=== PATIENT | male | born 1985 | race African-American/Black ===

== ENCOUNTER 2017-08-24 17:44 | Emergency (ER) | payer BC ==
[2017-08-24] MEDS ORDERED: NEOMY SULF/POLYMYX B SULF/HC OTIC SUSP 10 ML AS ONE (19:13)
--- NOTE | 2017-08-24 19:21 | ER Document Report ---
ED General - General Chief Complaint: Ear Pain Stated Complaint: EAR PAIN Time Seen by Provider: 08/24/17 19:06 Mode of Arrival: Ambulatory Information source: Patient TRAVEL OUTSIDE OF THE [place] IN LAST 30 DAYS: No - HPI Patient complains to provider of: left ear pain Onset: Yesterday Onset/Duration: Sudden Quality of pain: Throbbing Severity: Moderate Associated symptoms: None Exacerbated by: Denies Relieved by: Denies Similar symptoms previously: No Recently seen / treated by doctor: No - Related Data Allergies/Adverse Reactions: No Known Allergies Allergy (Verified 08/24/17 17:45) Past Medical History - General Information source: Patient - Social History Smoking Status: Current Every Day Smoker Frequency of alcohol use: None Drug Abuse: None Lives with: Family Family History: DM, Malignancy Patient has suicidal ideation: No Patient has homicidal ideation: No - Medical History Medical History: Negative Renal/ Medical History: Denies: Hx Peritoneal Dialysis Musculoskeltal Medical History: Reports Hx Musculoskeletal Deformity, Reports Hx Musculoskeletal Trauma Past Surgical History: Reports: None - Immunizations Immunizations up to date: Yes Hx Diphtheria, Pertussis, Tetanus Vaccination: Yes Review of Systems - Review of Systems Constitutional: No symptoms reported EENT: See HPI Cardiovascular: No symptoms reported Respiratory: No symptoms reported Gastrointestinal: No symptoms reported Genitourinary: No symptoms reported Male Genitourinary: No symptoms reported Musculoskeletal: No symptoms reported Skin: No symptoms reported Hematologic/Lymphatic: No symptoms reported Neurological/Psychological: No symptoms reported Physical Exam - Vital signs Vitals: Temp Pulse Resp BP Pulse Ox 98.3 F 68 18 107/82 98 08/24/17 18:07 08/24/17 18:07 08/24/17 18:07 08/24/17 18:07 08/24/17 18:07 - Notes Notes: PHYSICAL EXAMINATION: GENERAL: Well-appearing, well-nourished and in no acute distress. HEAD: Atraumatic, normocephalic. EYES: Pupils equal round and reactive to light, extraocular movements intact, sclera anicteric, conjunctiva are normal. ENT: Nares patent, oropharynx clear without exudates. Moist mucous membranes. Pinna painful with active motion. External canal erythematous. TM within normal limits. NECK: Normal range of motion, supple without lymphadenopathy LUNGS: Breath sounds clear to auscultation bilaterally and equal. No wheezes rales or rhonchi. HEART: Regular rate and rhythm without murmurs ABDOMEN: Soft, nontender, nondistended abdomen. No guarding, no rebound. No masses appreciated. Musculoskeletal: Normal range of motion, no pitting or edema. No cyanosis. NEUROLOGICAL: Cranial nerves grossly intact. Normal speech, normal gait. Normal sensory, motor exams PSYCH: Normal mood, normal affect. SKIN: Warm, Dry, normal turgor, no rashes or lesions noted. Course - Vital Signs Vital signs: Temp Pulse Resp BP Pulse Ox 98.3 F 68 18 107/82 98 08/24/17 18:07 08/24/17 18:07 08/24/17 18:07 08/24/17 18:07 08/24/17 18:07 Discharge - Discharge Clinical Impression: Left otitis externa Condition: Stable Disposition: HOME, SELF-CARE Instructions: Otitis Externa ([facility]), Use of Ear Drops ([facility]) Additional Instructions: corticosporin otic drops: 4 drops left ear three times daily for 5 days Follow up with your physician tomorrow for further care or return to the ED IMMEDIATELY if symptoms worsen or new concerns occur. If you cannot afford to follow up with your primary care physician a list of low cost clinics have been provided at the end of your discharge papers as well. Referrals: DEZ MILLIGAN, [ASSOCIATE] - Follow up as needed
[2017-08-24 19:28] VITALS: BP 124/82
== END 2017-08-24 19:28 | disposition home or self-care (01) ==
LOC: ER 17:44
DX: H60.92 Unspecified otitis externa, left ear (principal); H92.02 Otalgia, left ear; F17.200 Nicotine dependence, unspecified, uncomplicated
CPT/HCPCS: 99282; J3490

== ENCOUNTER 2018-04-09 13:42 | Emergency (ER) | payer BC ==
[2018-04-09 14:32] VITALS: BP 135/73
[2018-04-09] MEDS ORDERED: NORMAL SALINE 1000 ML 1,000 ML IV ONE (14:44)
[2018-04-09] MEDS ORDERED: ONDANSETRON HCL INJ/PF 4 MG/2 ML SDV IV ONE (14:44)
--- NOTE | 2018-04-09 14:46 | ER Document Report ---
ED Medical Screen (RME) - General Chief Complaint: Nausea/Vomiting Stated Complaint: VOMITING/FEVER Time Seen by Provider: 04/09/18 14:43 Mode of Arrival: Ambulatory Information source: Patient Notes: Patient is an otherwise healthy 33-year-old male who presents with chief complaint of body aches, chills, nausea, vomiting and diarrhea that started at 2 AM. Patient does report he was out drinking last night, reports he has never had anything like this happen before. Patient does report some abdominal pain that is intermittent sharp stabbing and cramping pain. Denies any blood in his vomit or stool. Exam: Abdomen soft, nontender I have greeted and performed a rapid initial assessment of this patient. A comprehensive ED assessment and evaluation of the patient, analysis of test results and completion of the medical decision making process will be conducted by additional ED providers. Dictation of this chart was performed using voice recognition software; therefore, there may be some unintended grammatical errors. TRAVEL OUTSIDE OF THE [place] IN LAST 30 DAYS: No - Related Data Allergies/Adverse Reactions: No Known Allergies Allergy (Verified 04/09/18 13:44) Past Medical History - Social History Chew tobacco use (# tins/day): No Frequency of alcohol use: None Drug Abuse: None Renal/ Medical History: Denies: Hx Peritoneal Dialysis Musculoskeltal Medical History: Reports Hx Musculoskeletal Deformity, Reports Hx Musculoskeletal Trauma - Immunizations Immunizations up to date: Yes Hx Diphtheria, Pertussis, Tetanus Vaccination: Yes Physical Exam - Vital signs Vitals: Temp Pulse Resp BP Pulse Ox 98.0 F 59 L 16 135/73 H 100 04/09/18 14:04/09/18 14:04/09/18 14:04/09/18 14:29 04/09/18 14:29 Course - Vital Signs Vital signs: Temp Pulse Resp BP Pulse Ox 98.0 F 59 L 16 135/73 H 100 04/09/18 14:29 04/09/18 14:29 04/09/18 14:29 04/09/18 14:29 04/09/18 14:29
[2018-04-09 15:20] LABS: APPEARANCE,URINE CLEAR; BILIRUBIN,URINE NEGATIVE (NEGATIVE); COLOR,URINE YELLOW; GLUCOSE, URINE NEGATIVE (NEGATIVE); KETONES,URINE NEGATIVE (NEGATIVE); LEUKOCYTE ESTERASE,URINE NEGATIVE (NEGATIVE); NITRITE,URINE NEGATIVE (NEGATIVE); PROTEIN,URINE NEGATIVE (NEGATIVE); URINE SPECIFIC GRAVITY 1.018; UROBILINOGEN,URINE NEGATIVE mg/dL (<2.0)
[2018-04-09 15:54] LABS: ABSOLUTE EOSINOPHILS # (AUTO) 0.2 10^3/uL (0.0-0.6); ABSOLUTE LYMPHOCYTES (AUTO) 2.5 10^3/uL (0.5-4.7); ABSOLUTE MONOCYTES (AUTO) 0.6 10^3/uL (0.1-1.4); ABSOLUTE NEUT (AUTO) 1.9 10^3/uL (1.7-8.2); BASOPHILS % (AUTO) 0.8 % (0-2); EOSINOPHILS % (AUTO) 4.6 % (0-6); HEMATOCRIT 49.7 % (37.9-51.0); HEMOGLOBIN 17.2 g/dL (13.5-17.0); LYMPHOCYTES % (AUTO) 47.7 % (13-45); MEAN CORPUSCULAR HGB CONC 34.5 g/dL (32.0-36.0); MEAN CORPUSCULAR VOLUME 90 fl (80-97); MONOCYTES % (AUTO) 11.3 % (3-13); PLATELET COUNT 205 10^3/uL (150-450); RED BLOOD COUNT 5.54 10^6/uL (4.35-5.55); RED CELL DISTRIBUTION WIDTH 12.4 % (11.5-14.0); SEGMENTED NEUTROPHILS % (AUTO) 35.6 % (42-78); TOTAL CELLS COUNTED % (AUTO) 100 %; WHITE BLOOD COUNT 5.3 10^3/uL (4.0-10.5)
[2018-04-09 17:27] LABS: ALANINE AMINOTRANSFERASE 30 U/L (21-72); ALBUMIN 4.2 g/dL (3.5-5.0); ALKALINE PHOSPHATASE 75 U/L (38-126); ANION GAP 9 (5-19); ASPARTATE AMINO TRANSFERASE 33 U/L (17-59); BILIRUBIN,DIRECT 0.4 mg/dL (0.0-0.4); BILIRUBIN,TOTAL 0.7 mg/dL (0.2-1.3); BLOOD UREA NITROGEN 11 mg/dL (7-20); CALCIUM 9.3 mg/dL (8.4-10.2); CARBON DIOXIDE 21 mmol/L (22-30); CHLORIDE 112 mmol/L (98-107); GLUCOSE 85 mg/dL (75-110); LIPASE 103.6 U/L (23-300); POTASSIUM 4.5 mmol/L (3.6-5.0); TOTAL PROTEIN 7.2 g/dL (6.3-8.2)
[2018-04-09] MEDS ORDERED: RINGERS SOLUTION,LACTATED 1,000 ML IV ONE (18:33)
[2018-04-09] MEDS ORDERED: METOCLOPRAMIDE HCL INJ/PF 10 MG/2 ML SDV IV ONE (18:35)
[2018-04-09] MEDS ORDERED: DIPHENHYDRAMINE HCL 50 MG/ML VIAL IV ONE (18:35)
[2018-04-09] MEDS ORDERED: ONDANSETRON ODT 4 MG TAB (6 TAB/ER DISP) PO PRN (20:24)
--- NOTE | 2018-04-09 20:26 | ER Document Report ---
ED General - General Chief Complaint: Nausea/Vomiting Stated Complaint: VOMITING/FEVER Time Seen by Provider: 04/09/18 14:43 Mode of Arrival: Ambulatory Information source: Patient Notes: 33-year-old male presents to the emergency room with nausea, vomiting, diarrhea and abdominal pain. Patient awoke with symptoms at 2 AM. He denies any fever, blood in the stool. He denies any chest pain or shortness of breath. TRAVEL OUTSIDE OF THE [place] IN LAST 30 DAYS: No - HPI Onset: Just prior to arrival Onset/Duration: Sudden Quality of pain: Dull Severity: Mild Pain Level: 1 Associated symptoms: Diarrhea, Nausea, Vomiting. denies: Chest pain, Fever, Shortness of breath Exacerbated by: Denies Relieved by: Denies Similar symptoms previously: No Recently seen / treated by doctor: No - Related Data Allergies/Adverse Reactions: No Known Allergies Allergy (Verified 04/09/18 13:44) Past Medical History - General Information source: Patient - Social History Smoking Status: Never Smoker Cigarette use (# per day): Yes Chew tobacco use (# tins/day): No Frequency of alcohol use: None Drug Abuse: None Lives with: Family Family History: DM, Malignancy Patient has suicidal ideation: No Patient has homicidal ideation: No Renal/ Medical History: Denies: Hx Peritoneal Dialysis Musculoskeletal Medical History: Reports Hx Musculoskeletal Deformity, Reports Hx Musculoskeletal Trauma - Immunizations Immunizations up to date: Yes Hx Diphtheria, Pertussis, Tetanus Vaccination: Yes Review of Systems - Review of Systems Constitutional: denies: Chills, Fever EENT: No symptoms reported Cardiovascular: No symptoms reported. denies: Chest pain, Palpitations, Heart racing Respiratory: denies: Cough, Short of breath Gastrointestinal: See HPI Genitourinary: No symptoms reported Male Genitourinary: No symptoms reported Musculoskeletal: No symptoms reported Skin: No symptoms reported Hematologic/Lymphatic: No symptoms reported Neurological/Psychological: No symptoms reported Physical Exam - Vital signs Vitals: Temp Pulse Resp BP Pulse Ox 98.0 F 59 L 16 135/73 H 100 04/09/18 14:29 04/09/18 14:29 04/09/18 14:29 04/09/18 14:29 04/09/18 14:29 Notes: Physical exam: GENERAL: 83-year-old man, alert and oriented 3, no acute distress. HEAD: Atraumatic, normocephalic. EYES: Pupils equal round and reactive to light, extraocular movements intact, sclera anicteric, conjunctiva are normal. ENT: TMs normal, nares patent, oropharynx clear without exudates. Moist mucous membranes. NECK: Normal range of motion, supple without obvious mass or JVD. LUNGS: Breath sounds clear to auscultation bilaterally and equal. No wheezes rales or rhonchi. HEART: Regular rate and rhythm without murmurs, rubs or gallops. ABDOMEN: Soft, normoactive bowel sounds. Mild tenderness in the epigastrium. No guarding, no rebound. No masses appreciated. No Peter sign. No pain at McBurney's point. EXTREMITIES: Normal range of motion, no pitting or edema. No clubbing or cyanosis. NEUROLOGICAL: Cranial nerves II through XII grossly intact. Normal speech, moving all extremities. PSYCH: Normal mood, normal affect. SKIN: Warm, Dry, normal turgor, no rashes or lesions noted. Course - Re-evaluation Re-evalutation: 04/09/18 20:24 Repeat exam: Patient much improved, no complaints of abdominal pain. On exam he has soft abdomen with bowel sounds, nontender, no rebound or guarding. - Vital Signs Vital signs: Temp Pulse Resp BP Pulse Ox 98.0 F 59 L 16 135/73 H 100 04/09/18 14:29 04/09/18 14:29 04/09/18 14:29 04/09/18 14:29 04/09/18 14:29 - Laboratory Result Diagrams: 04/09/18 15:42 04/09/18 16:53 Laboratory results interpreted by me: 04/09/18 04/09/18 15:42 16:53 Hgb 17.2 H Seg Neutrophils % 35.6 L Lymphocytes % 47.7 H Chloride 112 H Carbon Dioxide 21 L Discharge - Discharge Clinical Impression: Vomiting Condition: Stable Disposition: HOME, SELF-CARE Additional Instructions: Recommendations: Rest, drink plenty of fluids, advance diet as tolerated. Take Zofran for nausea. Return to the emergency room for worsening vomiting, not tolerating fluids, or if the abdominal pain returns or moves to the right lower side. Follow-up with a primary care doctor in the next 2 weeks. Forms: Return to Work
== END 2018-04-09 21:03 | disposition home or self-care (01) ==
LOC: ER 13:42
DX: R11.2 Nausea with vomiting, unspecified (principal)
CPT/HCPCS: 99284; 96361; 96374; 96375; 36415; 83690; 85025; 80053; 81001; J1200; J2765; J2405

== ENCOUNTER 2018-08-12 07:39 | Emergency (ER) | payer BC ==
[2018-08-12 07:46] VITALS: BP 124/73
== END 2018-08-12 07:48 | disposition left against medical advice (07) ==
LOC: ER 07:39
DX: Z53.21 Procedure and treatment not carried out due to patient leaving prior to being seen by health care provider (principal)